=== PATIENT | male | born 1955 | race Caucasian/White ===

== ENCOUNTER 2022-05-16 16:38 | Emergency (ER) | payer MEDICARE, OTHER ==
[~2022-05-16] VITALS: Ht 185.4 cm; Wt 83.9 kg
[~2022-05-16 16:38] MED LIST: ASPIRIN EC81 MG PO; CARVEDILOL25 MG PO; CENTRUM SILVER1 EAC1 PO; GLYBURIDE-METF1 EACH PO; LISINOPRIL-HCT1 EAC1 PO; MELATONIN 3 MG1 EACH PO; PLAVIX75 MG PO; SIMVASTATIN40 MG PO; vitamin c PO
== END 2022-05-16 19:05 | disposition home or self-care (01) ==
LOC: ER 17:05
DX: M25.571 Pain in right ankle and joints of right foot (principal); S93.491A Sprain of other ligament of right ankle, initial encounter; W18.39XA Other fall on same level, initial encounter; Y93.01 Activity, walking, marching and hiking; Y92.89 Other specified places as the place of occurrence of the external cause; I10 Essential (primary) hypertension; E11.9 Type 2 diabetes mellitus without complications; J44.9 Chronic obstructive pulmonary disease, unspecified; F41.9 Anxiety disorder, unspecified; Z86.73 Personal history of transient ischemic attack (TIA), and cerebral infarction without residual deficits
CPT/HCPCS: 99283